=== PATIENT | male | born 1975 | race Two or more races ===

== ENCOUNTER 2020-01-23 14:22 | Emergency (ER) | payer SELFPAY ==
[~2020-01-23] VITALS: Ht 157.5 cm; Wt 65.3 kg
[2020-01-23 14:40] VITALS: BP 138/77
[2020-01-23] MEDS ORDERED: LORazepam 1mg tab ORAL ONE (14:45)
[2020-01-23 14:59] LABS: APPEARANCE,URINE CLEAR; BILIRUBIN, URINE NEGATIVE (NEGATIVE); GLUCOSE, URINE (UA) NEGATIVE (NEGATIVE); KETONES,URINE 1+ (NEGATIVE); LEUKOCYTE ESTERASE ,URINE 1+ (NEGATIVE); NITRITE,URINE NEGATIVE (NEGATIVE); PH,URINE 6 (4.5-8.0); PROTEIN,URINE 1+ (NEGATIVE); UROBILINOGEN,URINE 1 MG/DL (0.0-1.0)
[2020-01-23 15:02] LABS: COLOR,URINE YELLOW
[2020-01-23 15:12] LABS: EOSINOPHILS % (AUTO) 0.4 % (0.0-3.0); HEMOGLOBIN 13.5 G/DL (14.2-18.0); LYMPHOCYTES % (AUTO) 15.6 % (20.0-45.0); MEAN CORPUSCULAR VOLUME 88 FL (80-99); MONOCYTES % (AUTO) 9.9 % (1.0-10.0); NEUTROPHILS % (AUTO) 73.1 % (45.0-75.0); PLATELET COUNT 178 K/UL (150-450); RED BLOOD COUNT 4.32 M/UL (4.70-6.10); RED CELL DISTRIBUTION WIDTH 11.8 % (11.6-14.8); WHITE BLOOD COUNT 10.4 K/UL (4.8-10.8)
[2020-01-23 15:26] LABS: ANION GAP 10 mmol/L (5-15); BLOOD UREA NITROGEN 26 mg/dL (7-18); CALCIUM 9.1 MG/DL (8.5-10.1); CARBON DIOXIDE 24 MMOL/L (21-32); CHLORIDE 106 MMOL/L (98-107); CREATININE 0.9 MG/DL (0.55-1.30); SODIUM 140 MMOL/L (136-145)
[2020-01-23 15:30] LABS: ALANINE AMINOTRANSFERASE 24 U/L (12-78); ALBUMIN 3.9 G/DL (3.4-5.0); ALBUMIN/GLOBULIN RATIO 1.6 (1.0-2.7); ALKALINE PHOSPHATASE 96 U/L (46-116); ASPARTATE AMINO TRANSFERASE 29 U/L (15-37); BILIRUBIN,TOTAL 0.6 MG/DL (0.2-1.0)
--- NOTE | 2020-01-23 15:39 | Emergency Room Report ---
History of Present Illness General Chief Complaint: General Complaint Source: Patient Present Illness HPI 44-year-old male with no no signal past medical history here reporting that he might have been some methamphetamine and feels palpitation feels like a bubbling in the skin. Denies any nausea vomiting abdominal pain. Denies any tobacco smoke alcohol intake. Denies any IV drug use. Reports that he was m ethamphetamine about an hour prior to arrival. Feels like he is in "seeing things". Denies any psychiatric history. Denies any generalized chest pain or shortness of breath. Complains of palpitation only. Denies any cardiac history of hypertension. Appears to be slightly tachycardic however after administration of IV fluid patient heart rate was within normal limits. Allergies: Coded Allergies: No Known Allergies (Unverified , 01/23/20) COVID-19 Screening Contact w/high risk pt: No Experienced COVID-19 symptoms?: No COVID-19 Testing performed LICENSED PROSTHETIST: No Patient History Past Medical History: see triage record Past Surgical History: none Pertinent Family History: none Reviewed Nursing Documentation: PMH: Agreed; PSxH: Agreed Nursing Documentation-PMH Past Medical History: No Stated History Review of Systems All Other Systems: negative except mentioned in HPI Physical Exam Vital Signs Date Time Temp Pulse Resp B/P (MAP) Pulse Ox O2 Delivery O2 Flow Rate FiO2 01/23/20 14:28 98.6 105 18 138/77 (97) 98 Room Air Sp02 EP Interpretation: reviewed, normal General Appearance: no apparent distress, alert, GCS 15, non-toxic Head: normocephalic, atraumatic Eyes: bilateral eye normal inspection, bilateral eye PERRL ENT: hearing grossly normal, normal pharynx, no angioedema, normal voice Neck: full range of motion, supple/symm/no masses Respiratory: chest non-tender, lungs clear, normal breath sounds, speaking full sentences Cardiovascular #1: regular rate, rhythm, no edema Cardiovascular #2: 2+ carotid (R), 2+ carotid (L), 2+ radial (R), 2+ radial (L) Gastrointestinal: normal bowel sounds, non tender, soft, non-distended, no guarding, no rebound Rectal: deferred Genitourinary: no CVA tenderness Musculoskeletal: back normal, non-tender Neurologic: alert, motor strength/tone normal, oriented, oriented x3, sensory intact, responsive, speech normal Psychiatric: judgement/insight normal, memory normal, mood/affect normal, no suicidal/homicidal ideation, anxious Skin: no rash, well hydrated Lymphatic: no adenopathy Medical Decision Making PA Attestation All my diagnosis and treatment plans were reviewed ad discussed with my supervising physician Dr. Rojas Diagnostic Impression: Primary Impression: Methamphetamine abuse Additional Impression: UTI (urinary tract infection) ER Course 44-year-old male with no no signal past medical history here reporting that he m ight have been some methamphetamine and feels palpitation feels like a bubbling in the skin. Denies any nausea vomiting abdominal pain. Denies any tobacco smoke alcohol intake. Denies any IV drug use. Reports that he was methamphetamine about an hour prior to arrival. Feels like he is in "seeing things". Denies any psychiatric history. Denies any generalized chest pain or shortness of breath. Complains of palpitation only. Denies any cardiac history of hypertension. Appears to be slightly tachycardic however after administration of IV fluid patient heart rate was within normal limits. Ddx considered but are not limited to: Methamphetamine abuse, cocaine abuse, alcohol intoxication with altered level of consciousness, alcohol intoxication causing pancreatitis, alcohol abuse, multi drug use and alcohol intoxication Vital signs: are WNL, pt. is afebrile H&PE are most consistent with: Methamphetamine abuse, UTI incidental finding ORDERS: Chest x-ray, EKG, CBC, CMP,UA, troponin, tox screen, Keflex ER intervention: NS bolus, Ativan PO DISCHARGE: At this time pt. is stable for d/c to home. Will provide printed patient care instructions, and any necessary prescriptions. Care plan and follow up instructions have been discussed with the patient prior to discharge. Patient take medication as directed, follow primary care provider, avoid using methamphetamine, if worsening symptoms return to the emergency room. At this time no further evaluation regarding cardiac history needed patient troponin wi thin normal limit EKG only appears to be sinus tachycardic most likely secondary to use of methamphetamine and being anxious. EKG Diagnostic Results Rate: normal Rhythm: NSR ST Segments: no acute changes Other Impression No acute ST changes Chest X-Ray Diagnostic Results Chest X-Ray Diagnostic Results : Chest X-Ray Ordered: Yes # of Views/Limited/Complete: 1 View Indication: Other EP Interpretation: Yes YANG Xray: Interpretation reviewed, by supervising MD, and agrees with findings. Interpretation: no consolidation, no effusion, no pneumothorax Impression: No acute disease Electronically Signed by: Esperanza Moulton PA-C Last Vital Signs Date Time Temp Pulse Resp B/P (MAP) Pulse Ox O2 Delivery O2 Flow Rate FiO2 01/23/20 15:24 105 18 138/77 98 01/23/20 14:40 Room Air 01/23/20 14:40 98.6 Disposition: HOME, SELF-CARE Condition: Stable Scripts Cephalexin* (KEFLEX*) 500 Mg Capsule 500 MG ORAL EVERY 12 HOURS for 7 Days, #14 CAP 0 Refills Prov: Esperanza Henao 01/23/20 Patient Instructions: Stimulant Use Disorder-Methamphetamines, Urinary Tract Infection, [id number] Additional Instructions: Take medication as directed, follow with primary care provider, avoid using methamphetamine, person symptoms attended emergency room Esperanza Henao Jan 23, 2020 15:39
[2020-01-23] MEDS ORDERED: CEPHALEXIN500 MG ORAL (15:40)
[2020-01-23 16:22] VITALS: BP 124/75
--- NOTE | 2020-01-23 17:58 | Diagnostic Imaging Report ---
Indication: Chest pain Technique: One view of the chest Comparison: none Findings: Lungs and pleural spaces are clear. Heart size is normal. Impression: No acute process
--- NOTE | 2020-01-24 13:44 | Cardiology Report ---
APPROVED REPORT EKG Measurement Heart [id number] <Conclusion> Sinus tachycardia Otherwise normal ECG
== END 2020-01-23 16:23 | disposition home or self-care (01) ==
LOC: EMR 16:18
DX: F15.10 Other stimulant abuse, uncomplicated (principal); N39.0 Urinary tract infection, site not specified; R00.0 Tachycardia, unspecified
CPT/HCPCS: 36415; 71045; 80053; 80307; 81003; 84484; 85025; 93005; 96360; 99284; J7030